=== PATIENT | female | born 1990 | race Caucasian/White ===

== ENCOUNTER → 2025-01-29 | Outpatient (CLI) | payer BC ==
--- NOTE | 2025-01-29 13:52 | US ---
EXAMINATION TYPE: US thyroid st tissue head/neck DATE OF EXAM: 01/29/2025 COMPARISON: NONE CLINICAL INDICATION: Female, 34 years old with history of E04.1 NONTOXIC SINGLE THYROID NO; tigre 's TECHNIQUE: Grayscale and color Doppler imaging of the thyroid gland. FINDINGS: GLAND SIZE: Right Lobe: 5.7 x 1.2 x 2.0 cm Overall Parenchyma: homogeneous Left Lobe: 5.5 x 1.4 x 1.9 cm Overall Parenchyma: homogeneous Isthmus Thickness: .2 cm NODULES RIGHT: # of nodules measured on right: Subcentimeter nodules seen. LEFT: # of nodules measured on left: subcentimeter nodules seen. ISTHMUS: # of nodules measured in the isthmus: 0 Bilateral subcentimeter colloid cysts. Bilateral neck scanned, no evidence of lymphadenopathy. IMPRESSION: Mildly enlarged thyroid gland with bilateral subcentimeter colloid cysts. ACR TI-RADS LEVEL: TI-RADS 1 - BENIGN: No [facility], , 01/29/2025 1:50 PM
== END | disposition home or self-care (01) ==
LOC: RADUSWWP 13:19
PROVIDERS: ATTEND Family Medicine
DX: E04.2 Nontoxic multinodular goiter (principal)
CPT/HCPCS: 76536